=== PATIENT | female | born 1970 | race Caucasian/White ===

== ENCOUNTER 2017-08-26 19:08 | Observation (INO) | payer BC ==
[2017-08-26] MEDS ORDERED: ASPIRIN 81 MG CHEWABLE TABLET ONE (19:52)
[2017-08-26] MEDS ORDERED: ONDANSETRON 4 MG/2 ML VIAL ONE (19:53)
[2017-08-26] MEDS ORDERED: FENTANYL CITR 100 MCG/2 ML ONE (19:53)
[2017-08-26] MEDS ORDERED: NA CHLORIDE 0.9% 1,000 ML ONE (20:05)
[2017-08-26 20:08] LABS: Absolute Lymphocytes (CBC) 3.4 K/uL (0.7-4.9); Absolute Monocytes 0.7 K/uL (0.1-1.3); Absolute Neutrophil 3.2 K/uL (1.8-8.0); Basophils % 1.1 % (0-1.3); Eosinophils % 4.5 % (0-4.4); Lymphocytes % 43.6 % (15.3-44.8); MCH 32.2 pg (27.0-35.0); MCV 94.1 fL (80-100); MPV 8.3 fL (7.6-11.3); RBC Red Blood Cell Count 4.36 M/uL (3.86-4.86)
[2017-08-26 20:14] LABS: Protime INR 0.9
[2017-08-26 20:23] LABS: Bicarbonate 29 mEq/L (21-31); Glucose Level 89 mg/dL (65-120); Lipase 31 U/L (22-51); Potassium 3.9 mEq/L (3.6-5.0); Sodium Level 137 mEq/L (135-145)
[2017-08-26 20:30] LABS: ALT/SGPT 15 IU/L (10-60); AST/SGOT 21 IU/L (10-42); Albumin 4.1 g/dL (3.2-5.5); Alkaline Phosphatase 99 IU/L (42-121); BUN Blood Urea Nitrogen 14 mg/dL (6-20); Bilirubin Direct < 0.1 mg/dL (0-0.2); Bilirubin Total 0.5 mg/dL (0.3-1.2); Creatine Phosphokinase 64 IU/L (22-269); Magnesium 1.9 mg/dL (1.8-2.5); Protein, Total 6.8 g/dL (6.0-8.3)
[2017-08-26 20:31] LABS: CKMB Creatine Kinase MB 0.8 ng/ml (0.3-4.0)
--- NOTE | 2017-08-26 21:35 | RAD REPORT ---
EXAM DESCRIPTION: CT - Angio Aorta For Dissection - 08/26/2017 9:10 pm CLINICAL HISTORY: . Chest pain/abdominal pain COMPARISON: None TECHNIQUE: Computed tomography angiography of the chest, abdomen pelvis were obtained. 100 cc Isovue 370 was administered intravenously. Coronal and sagittal reconstruction were performed. All CT scans are performed using dose optimization technique as appropriate and may include automated exposure control or mA/KV adjustment according to patient size. FINDINGS: An aortic dissection is not seen. An aortic aneurysm is not displayed. Mild soft tissue w ithin the anterior mediastinum may represent thymic tissue. The celiac, SMA and ELAINE are patent . A lung consolidation is not present. A pericardial effusion is not seen. A pleural effusion is not n oted. Mild centrilobular emphysema is present The liver,spleen, pancreas and adrenals demonstrate no significant abnormality. The left kidney is absent. A small right renal cyst is present. Two right renal arteries are present. Minimal right hydronephrosis is present. The proximal right ureter is minimally dilated. The remaind er of right ureter is not clearly seen. There is no evidence of diverticulitis. The stomach is mildly distended. The wall of the proximal duo denum appears thickened. A moderate amount of stool is present within the colon. An area of narrowing involves the sigmoid col on IMPRESSION: Negative for an aortic dissection. Minimal right hydronephrosis of uncertain etiology Mild gastric distention. The wall of the proximal duodenum appears thickened perhaps secondary to inf lammation Area of narrowing involving the sigmoid colon may be related to spasm or a mass. Followup is recommen ded
--- NOTE | 2017-08-26 21:37 | RAD REPORT ---
EXAM DESCRIPTION: Abel Single View08/26/2017 8:00 pm CLINICAL HISTORY: Chest pain COMPARISON: July 2017 FINDINGS: The lungs are mildly hyperaerated. The lungs appear clear of acute infiltrate. The heart i s normal size IMPRESSION: No acute abnormalities displayed
--- NOTE | 2017-08-26 21:59 | ER ---
Nurse's Notes [facility] Name: Talita Alex Age: 46 yrs Sex: Female : 1970 Arrival Date: 08/26/2017 Time: 19:11 Bed 25 Private MD: Diagnosis: Chest pain, unspecified Presentation: 08/26 19:15 Presenting complaint: Patient states: pain in her L shoulder and [place] [id number] aa1 this am and began to have a sore throat and lump in her neck this afternoon. Transition of care: patient was not received from another setting of care. Onset of symptoms was August 26, 2017. Care prior to arrival: None. 19:15 Method Of Arrival: Ambulatory aa1 19:15 Acuity: BALJINDER 3 aa1 Triage Assessment: 19:18 General: Appears in no apparent distress. comfortable, Behavior is calm, cooperative, aa1 appropriate for age. 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 LMP N/A - Hysterectomy aa1 Historical: - Allergies: 19:18 No Known Allergies; aa1 - Home Meds: 19:18 Pravachol 40 mg Oral tab 1 tab once daily [Active]; diazepam 10 mg Oral tab 1 tab 3 aa1 times per day [Active]; Richardson 10-325 mg Oral tab 1 tab every 6 hours [Active]; Vitamin D Oral 50,000 unit weekly [Active]; carisoprodol 350 mg Oral tab [Active]; Buspirone Oral [Active]; Zofran (as hydrochloride) 4 mg Oral tab [Active]; Symbicort inhalation inhalation 2 times per day [Active]; albuterol sulfate inhalation Inhl [Active]; - PMHx: 19:18 Arthritis; COPD; Fibromyalgia; aa1 - PSHx: 19:18 cervical fusion; aa1 19:23 Hysterectomy; aa1 - Immunization history:: Flu vaccine is up to date. - Social history:: Smoking status: Patient uses tobacco products, smokes one-half pack cigarettes per day. - Family history:: not pertinent. Screenin:38 Abuse screen: Denies threats or abuse. Denies injuries from another. Nutritional ao screening: No deficits noted. Tuberculosis screening: No symptoms or risk factors identified. Fall Risk None identified. Assessment: 19:35 General: Appears in no apparent distress. comfortable, Behavior is calm, cooperative, ao appropriate for age. Pain: Complains of pain in chest Pain radiates to neck Pain currently is 10 out of 10 on a pain scale. Quality of pain is described as Pain began This morning. Neuro: Level of Consciousness is awake, alert, obeys commands, Oriented to person, place, time, situation, Appropriate for age Moves all extremities. Speech is normal. Cardiovascular: Capillary refill < 3 seconds Patient's skin is warm and dry. Respiratory: Airway is patent Respiratory effort is even, unlabored, Respiratory pattern is regular, symmetrical, Breath sounds are clear bilaterally. Breath sounds with crackles in left posterior lower lobe. GI: Abdomen is non-distended. : No signs and/or symptoms were reported regarding the genitourinary system. EENT: No signs and/or symptoms were reported regarding the EENT system. 20:09 Reassessment: Patient BP low after given Fentanil, DR Castellanos notified who ordered ao liter of NS bolus. Patient has been also put in Trendelenburg position. 20:32 Reassessment: Patient appears in no apparent distress at this time. Patient and/or ao family updated on plan of care and expected duration. Pain level reassessed. Patient is alert, oriented x 3, equal unlabored respirations, skin warm/dry/pink. Monitoring BP. 21:36 Reassessment: Patient appears in no apparent distress at this time. Patient and/or ao family updated on plan of care and expected duration. Pain level reassessed. Patient is alert, oriented x 3, equal unlabored respirations, skin warm/dry/pink. Waiting on patient to urinate. 22:57 Reassessment: Patient appears in no apparent distress at this time. Patient and/or ao family updated on plan of care and expected duration. Pain level reassessed. Patient is alert, oriented x 3, equal unlabored respirations, skin warm/dry/pink. Waiting on room assignment. 23:39 Reassessment: Patient left by Wheelchair with JADA Alarcon. Report called by house ao supervisor of guidance and testing. Patient Stable under no aperient stress at this moment. Vital Signs: 19:18 BP 102 / 63; Pulse 78; Resp 16; Temp 98.9(O); Pulse Ox 96% on R/A; Weight 51.71 kg; aa1 Height 5 ft. 5 in. (165.10 cm); Pain 7/10; 20:00 BP 89 / 60 RA Supine (auto/reg); Pulse 71; Resp 16; cc 20:04 BP 77 / 52 LA Supine (auto/reg); Pulse 78; Resp 16; cc 20:33 BP 84 / 48; Pulse 66; Resp 16; Pulse Ox 97% on R/A; ao 20:48 BP 99 / 68; Pulse 74; Resp 16; Pulse Ox 98% on R/A; ao 22:03 BP 90 / 61; Pulse 76; Resp 13; Pulse Ox 96% on R/A; ao 22:57 BP 99 / 66; Pulse 83; Resp 16; Pulse Ox 97% on R/A; ao 19:18 Body Mass Index 18.97 (51.71 kg, 165.10 cm) aa1 ED Course: 19:11 Patient arrived in ED. al2 19:15 Triage completed. aa1 19:20 Arm band placed on right wrist. aa1 19:24 Mj Irene RN is Primary Nurse. ao 19:29 Malik Castellanos MD is Attending Physician. timmy 19:38 Patient has correct armband on for positive identification. monitoring engineer on. Pulse ao ox on. NIBP on. 19:38 Patient maintains SpO2 saturation greater than 95% on room air. ao 19:50 Inserted saline lock: 20 gauge in left antecubital area, using aseptic technique. Blood ao collected. 19:57 Radiology exam delayed due to lab results not completed at this time. (BUN/Creatinine) vm2 test not completed at this time. 19:58 X-ray completed. Portable x-ray completed in exam room. Patient tolerated procedure kc2 well. 19:58 XRAY Chest (1 view) In Process Unspecified. EDMS 21:10 CT Aorta for Dissection In Process Unspecified. EDMS 21:12 CT completed. Patient moved to CT. Patient moved back from CT. nj 21:58 Keisha Winslow MD is Hospitalizing Provider. timmy 21:58 Urine collected: clean catch specimen, clear. cc 21:58 UDS Sent. cc 23:39 No provider procedures requiring assistance completed. Patient admitted, IV remains in ao place. Administered Medications: 09:57 Drug: Aspirin Chewable Tablet 162 mg Route: PO; ao 21:25 Follow up: Response: No adverse reaction ao 19:57 Drug: fentaNYL (PF) 25 mcg Route: IVP; Site: left antecubital; ao 21:25 Follow up: Response: No adverse reaction; No adverse reaction. BP drop ao 20:00 Drug: Zofran 4 mg Route: IVP; Site: left antecubital; ao 21:25 Follow up: Response: No adverse reaction ao 20:10 Drug: NS 0.9% 1000 ml Route: IV; Rate: 1 bolus; Site: left antecubital; ao 21:26 Follow up: IV Status: Completed infusion; IV Intake: 1000ml ao 22:17 Drug: ProTONIX 40 mg Route: IVP; Site: left antecubital; ao 23:38 Follow up: Response: No adverse reaction ao 23:38 Not Given (Patient Low BP): fentaNYL (PF) 25 mcg IVP once ao Intake: 21:26 IV: 1000ml; Total: 1000ml. ao Outcome: 21:58 Decision to Hospitalize by Provider. timmy 23:21 Admitted to Med/surg accompanied by tech, via stretcher, room 213, Report called to Lory Wilder RN 23:21 Condition: stable 23:21 Demonstrated understanding of admission 23:40 Patient left the ED. ao Signatures: Dispatcher [employer] EDMS Lorraine Quinteros, JADA RN aaMalik Granado MD MD cha Chretien, Felicia, RN RN Sarai Dunlap Alex, RN RN Radhika Tellez2 Herberth Hernandez Victoria vm2 Caroline Sarmiento2
--- NOTE | 2017-08-26 21:59 | EDPHYS ---
Physician Documentation [facility] Name: Talita Alex Age: 46 yrs Sex: Female : 1970 Arrival Date: 08/26/2017 Time: 19:11 Bed 25 Private MD: ED Physician Malik Castellanos HPI: 08/26 19:39 This 46 yrs old Female presents to ER via Ambulatory with complaints of Chest timmy Pain, Neck and Upper Back Pain. 19:39 The patient or guardian reports chest pain that is located primarily in the substernal timmy area. Onset: today. The pain radiates to the left arm. Associated signs and symptoms: Pertinent positives: cough, shortness of breath. The chest pain is described as. Modifying factors: The symptoms are alleviated by remaining still, the symptoms are aggravated by movement. 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 N/A - Hysterectomy aa1 Historical: - Allergies: 19:18 No Known Allergies; aa1 - Home Meds: 19:18 Pravachol 40 mg Oral tab 1 tab once daily [Active]; diazepam 10 mg Oral tab 1 tab 3 aa1 times per day [Active]; Holden 10-325 mg Oral tab 1 tab every 6 hours [Active]; Vitamin D Oral 50,000 unit weekly [Active]; carisoprodol 350 mg Oral tab [Active]; Buspirone Oral [Active]; Zofran (as hydrochloride) 4 mg Oral tab [Active]; Symbicort inhalation inhalation 2 times per day [Active]; albuterol sulfate inhalation Inhl [Active]; - PMHx: 19:18 Arthritis; COPD; Fibromyalgia; aa1 - PSHx: 19:18 cervical fusion; aa1 19:23 Hysterectomy; aa1 - Immunization history:: Flu vaccine is up to date. - Social history:: Smoking status: Patient uses tobacco products, smokes one-half pack cigarettes per day. - Family history:: not pertinent. ROS: 19:39 Constitutional: Negative for fever, chills, and weight loss, Eyes: Negative for injury, timmy pain, redness, and discharge, ENT: Negative for injury, pain, and discharge, Neck: Negative for injury, pain, and swelling, Respiratory: Negative for shortness of breath, cough, wheezing, and pleuritic chest pain, Abdomen/GI: Negative for abdominal pain, nausea, vomiting, diarrhea, and constipation, Back: Negative for injury and pain, : Negative for injury, bleeding, discharge, and swelling, MS/Extremity: Negative for injury and deformity, Skin: Negative for injury, rash, and discoloration, Neuro: Negative for headache, weakness, numbness, tingling, and seizure, Psych: Negative for depression, anxiety, suicide ideation, homicidal ideation, and hallucinations, Allergy/Immunology: Negative for hives, rash, and allergies, Endocrine: Negative for neck swelling, polydipsia, polyuria, polyphagia, and marked weight changes, Hematologic/Lymphatic: Negative for swollen nodes, abnormal bleeding, and unusual bruising. 19:39 Cardiovascular: Positive for chest pain, with movement, of the chest and left arm. Exam: 19:39 Constitutional: This is a well developed, well nourished patient who is awake, alert, timmy and in no acute distress. Head/Face: Normocephalic, atraumatic. Eyes: Pupils equal round and reactive to light, extra-ocular motions intact. Lids and lashes normal. Conjunctiva and sclera are non-icteric and not injected. Cornea within normal limits. Periorbital areas with no swelling, redness, or edema. ENT: Nares patent. No nasal discharge, no septal abnormalities noted. Tympanic membranes are normal and external auditory canals are clear. Oropharynx with no redness, swelling, or masses, exudates, or evidence of obstruction, uvula midline. Mucous membranes moist. Neck: Trachea midline, no thyromegaly or masses palpated, and no cervical lymphadenopathy. Supple, full range of motion without nuchal rigidity, or vertebral point tenderness. No Meningismus. Chest/axilla: Normal chest wall appearance and motion. Nontender with no deformity. No lesions are appreciated. Cardiovascular: Regular rate and rhythm with a normal S1 and S2. No gallops, murmurs, or rubs. Normal PMI, no JVD. No pulse deficits. Abdomen/GI: Soft, non-tender, with normal bowel sounds. No distension or tympany. No guarding or rebound. No evidence of tenderness throughout. Back: No spinal tenderness. No costovertebral tenderness. Full range of motion. Skin: Warm, dry with normal turgor. Normal color with no rashes, no lesions, and no evidence of cellulitis. MS/ Extremity: Pulses equal, no cyanosis. Neurovascular intact. Full, normal range of motion. Neuro: Awake and alert, GCS 15, oriented to person, place, time, and situation. Cranial nerves II-XII grossly intact. Motor strength 5/5 in all extremities. Sensory grossly intact. Cerebellar exam normal. Normal gait. Psych: Awake, alert, with orientation to person, place and time. Behavior, mood, and affect are within normal limits. 19:39 Respiratory: the patient does not display signs of respiratory distress, Respirations: normal, Breath sounds: rhonchi, that are mild, are scattered. Vital Signs: 19:18 BP 102 / 63; Pulse 78; Resp 16; Temp 98.9(O); Pulse Ox 96% on R/A; Weight 51.71 kg; aa1 Height 5 ft. 5 in. (165.10 cm); Pain 7/10; 20:00 BP 89 / 60 RA Supine (auto/reg); Pulse 71; Resp 16; cc 20:04 BP 77 / 52 LA Supine (auto/reg); Pulse 78; Resp 16; cc 20:33 BP 84 / 48; Pulse 66; Resp 16; Pulse Ox 97% on R/A; ao 20:48 BP 99 / 68; Pulse 74; Resp 16; Pulse Ox 98% on R/A; ao 22:03 BP 90 / 61; Pulse 76; Resp 13; Pulse Ox 96% on R/A; ao 22:57 BP 99 / 66; Pulse 83; Resp 16; Pulse Ox 97% on R/A; ao 19:18 Body Mass Index 18.97 (51.71 kg, 165.10 cm) aa1 MDM: 19:29 Patient medically screened. [facility] 19:42 Data reviewed: vital signs, nurses notes, lab test result(s), EKG, radiologic studies, timmy plain films. 08/26 19:39 Order name: Basic Metabolic Panel; Complete Time: 21:56 [facility] 08/26 19:39 Order name: BNP; Complete Time: 21:56 [facility] 08/26 19:39 Order name: CBC with Diff; Complete Time: 21:56 [facility] 08/26 19:39 Order name: Ckmb; Complete Time: 21:56 [facility] 08/26 19:39 Order name: CPK; Complete Time: 21:56 [facility] 08/26 19:39 Order name: LFT's; Complete Time: 21:56 [facility] 08/26 19:39 Order name: Magnesium; Complete Time: 21:56 [facility] 08/26 19:39 Order name: PT-INR; Complete Time: 21:56 [facility] 08/26 19:39 Order name: Ptt, Activated; Complete Time: 21:56 [facility] 08/26 19:39 Order name: Troponin (emerg Dept Use Only); Complete Time: 21:56 [facility] 08/26 19:39 Order name: Lipase; Complete Time: 21:56 [facility] 08/26 19:39 Order name: UDS [facility] 08/26 21:55 Order name: Urine Dipstick--Ancillary (enter results) 08/26 22:20 Order name: Lipid Profile [facility] 08/26 19:39 Order name: XRAY Chest (1 view); Complete Time: 21:56 [facility] 08/26 19:39 Order name: EKG; Complete Time: 19:39 [facility] 08/26 19:53 Order name: CT Aorta for Dissection; Complete Time: 21:56 [facility] 08/26 22:02 Order name: CONS Physician Consult [facility] 08/26 22:20 Order name: Echo with Doppler [facility] 08/26 22:20 Order name: Heart Healthy [facility] 08/26 22:20 Order name: Lipid Profile [facility] 08/26 22:20 Order name: Troponin I [facility] 08/26 22:20 Order name: Troponin I [facility] 08/26 22:20 Order name: Troponin I [facility] 08/26 19:39 Order name: Cardiac monitoring; Complete Time: 19:47 [facility] 08/26 19:39 Order name: EKG - Nurse/Tech; Complete Time: 19:47 [facility] 08/26 19:39 Order name: IV Saline Lock; Complete Time: 19:48 [facility] 08/26 19:39 Order name: Labs collected and sent; Complete Time: 19:48 [facility] 08/26 19:39 Order name: O2 Per Protocol; Complete Time: 19:48 [facility] 08/26 19:39 Order name: O2 Sat Monitoring; Complete Time: 19:48 [facility] 08/26 19:39 Order name: Urine Dipstick-Ancillary (obtain specimen); Complete Time: 21:54 [facility] 08/26 19:39 Order name: Bilateral blood pressure; Complete Time: 20:04 [facility] Administered Medications: 09:57 Drug: Aspirin Chewable Tablet 162 mg Route: PO; ao 21:25 Follow up: Response: No adverse reaction ao 19:57 Drug: fentaNYL (PF) 25 mcg Route: IVP; Site: left antecubital; ao 21:25 Follow up: Response: No adverse reaction; No adverse reaction. BP drop ao 20:00 Drug: Zofran 4 mg Route: IVP; Site: left antecubital; ao 21:25 Follow up: Response: No adverse reaction ao 20:10 Drug: NS 0.9% 1000 ml Route: IV; Rate: 1 bolus; Site: left antecubital; ao 21:26 Follow up: IV Status: Completed infusion; IV Intake: 1000ml ao 22:17 Drug: ProTONIX 40 mg Route: IVP; Site: left antecubital; ao 23:38 Follow up: Response: No adverse reaction ao 23:38 Not Given (Patient Low BP): fentaNYL (PF) 25 mcg IVP once ao Disposition: 08/26/17 21:58 Hospitalization ordered by Keisha Winslow for Observation. Preliminary diagnosis is Chest pain, unspecified. - Bed requested for Telemetry/MedSurg (observation). - Status is Observation. ao - Condition is Stable. - Problem is new. - Symptoms have improved. UTI on Admission? No Signatures: Dispatcher [employer] EDMS Vickie Greene RN RN mw Kern, Alissa, RN RN aa1 Malik Castellanos MD MD cha Ortiz, Alex RN RN ao
[2017-08-26 22:05] LABS: Urine Blood TRACE (NEG); Urine Glucose NEGATIVE (NEG); Urine Protein NEGATIVE (NEG)
[2017-08-26] MEDS ORDERED: PANTOPRAZOLE 40 MG INJ ONE (22:12)
[2017-08-26 22:16] LABS: Barbiturates NEGATIVE; Benzodiazepines POSITIVE; Cocaine NEGATIVE; METHAMPHETAM NEGATIVE; Opiates POSITIVE; Phencyclidine NEGATIVE; THC Cannibis POSITIVE
[2017-08-26] MEDS ORDERED: ACETAMINOPHEN 500 MG TAB PO PRN (22:17)
[2017-08-27] MEDS: MORPHINE 4 MG/ML SYR IV PRN ×2 (01:44→06:00)
[2017-08-27] MEDS ORDERED: LORazepam 2 MG/ML VIAL IV ONE (01:48)
[2017-08-27] MEDS ORDERED: ALPRAZOLAM 0.5 MG TABLET PO PRN (01:48)
--- NOTE | 2017-08-27 01:54 | P.HP ---
Certification for Inpatient Patient admitted to: Observation With expected LOS: <2 Midnights Patient will require the following post-hospital care: None Practitioner: I am a practitioner with admitting privileges, knowledge of patient current condition, hospital course, and medical plan of care. Services: Services provided to patient in accordance with Admission requirements found in Title 42 Section 412.3 of the Code of Federal Regulations Patient History Date of Service: 08/27/17 Reason for admission: Shortness of breath; COPD exacerbation; chest pain; anxiety disorder History of Present Illness: Patient is a 46-year-old female who comes into the emergency room with complaints of chest discomfort. She has been feeling short of breath and has noticed that she had a little lump in her throat. She sent a picture to her mother who apparently is a nurse. Patient started having anxiety in her chest started hurting. The pain went to her left shoulder. She has a wrap around her left arm. She got concerned and came into the emergency room for further evaluation. Patient normally has chest pain associated with her anxiety. We give her some anxiety medicine which has alleviated her chest discomfort. Patient clinically is feeling much better after the anxiolytics. Patient also had a CT of her chest in the lower part of her neck which did not reveal any significant abnormalities. On physical exam there is no abnormalities. Her oral pharyngeal looks normal and there is no noted supple lymphadenopathy. She did have an anterior cervical fusion performed/year. There is a scar but no other abnormalities noted. She should be stable for discharge home in the morning. Allergies No Known Allergies Allergy (Unverified 07/06/17 16:56) Home Medications: Budesonide/Formoterol Fumarate [Symbicort 160-4.5 Mcg Inhaler] 1 puff IH BID 05/04 Bupropion *Xl* [Wellbutrin XL*] 300 mg PO DAILY 08/27/17 Buspirone HCl [Buspar] 15 mg PO BID 08/27/17 Carisoprodol [Soma*] 350 mg PO BID PRN 08/27/17 Cholecalciferol (Vitamin D3) [Vitamin D 5,000 IU Cap*] 1 cap PO EVERY 7TH DAY Diazepam [Valium*] 10 mg PO TID 08/27/17 Hydrocodone 10/APAP 325 [[place] 10/325*] 1 tab PO Q6H PRN 08/27/17 Metoclopramide HCl [Reglan] 10 mg PO TID 08/27/17 Ondansetron HCl [Zofran] 4 mg PO Q6H PRN 08/27/17 Pravastatin Sodium [Pravachol] 40 mg PO DAILY 08/27/17 - Past Medical/Surgical History Has patient received pneumonia vaccine in the past: No Diabetic: No -: ARTHRITIS -: COPD -: FIBROMYALGIA -: DEGENERATIVE DISC DISEASE -: GASTROPARESIS -: IBS -: PTSD -: DEPRESSION W/ ANXIETY -: CHOSTOCONDRITIS -: HYSTERECTOMY -: TUBAL LIGATION -: KIDNEY REPAIR -: HYSTERECTOMY -: TONSILLECTOMY -: CERVICAL FUSION -: X2 - Family History Father Medical History: Diabetes Notes: CHF Mother Medical History: Heart disease Notes: CHF - Social History Smoking Status: Current every day smoker Alcohol use: Yes Caffeine use: Yes Place of Residence: Home Review of Systems 10-point ROS is otherwise unremarkable Physical Examination - Vital Signs Temperature: 97.8 F Blood Pressure: 103/61 Pulse: 66 Respirations: 18 Pulse Ox (%): 97 - Physical Exam General: Alert, In no apparent distress, Oriented x3 HEENT: Atraumatic, PERRLA, Mucous membr. moist/pink, EOMI, Sclerae nonicteric Neck: Supple, 2+ carotid pulse no bruit, No LAD, Without JVD or thyroid abnormality Respiratory: Clear to auscultation bilaterally, Normal air movement Cardiovascular: Regular rate/rhythm, Normal S1 S2, No murmurs Gastrointestinal: Normal bowel sounds, Soft and benign, Non-distended, No tenderness Musculoskeletal: No clubbing, No swelling, No tenderness Integumentary: No rashes Neurological: Normal gait, Normal speech, Normal strength at 5/5 x4 extr, Normal tone, Sensation intact, Cranial nerves 3-12 intact, Normal affect Lymphatics: No axilla or inguinal lymphadenopathy - Studies Laboratory Data (last 24 hrs) 08/26/17 19:45: PT 10.6, INR 0.90, APTT 28.5 08/26/17 19:45: WBC 7.7, Hgb 14.0, Hct 41.0, Plt Count 193 08/26/17 19:45: B-Natriuretic Peptide 30 08/26/17 19:45: Sodium 137, Potassium 3.9, BUN 14, Creatinine 0.82, Glucose 89, Magnesium 1.9, Total Bilirubin 0.5, AST 21, ALT 15, Alkaline Phosphatase 99, Lipase 31 Assessment & Plan - Problems (Diagnosis) (1) Chest pain, rule out acute myocardial infarction Current Visit: Yes Status: Acute (2) Shortness of breath Current Visit: Yes Status: Acute (3) Anxiety disorder Current Visit: Yes Status: Acute (4) Neck discomfort Current Visit: Yes Status: Acute (5) History of COPD Current Visit: Yes Status: Acute (6) History of fibromyalgia Current Visit: Yes Status: Acute - Plan Plan: 1. Serial troponins and EKG 2. Pulmonary consultation 3. Echocardiogram 4. CT aortic dissection did not reveal any significant abnormalities within the lungs in the lower part of the neck; there is no abnormalities noted on physical exam 5. IV morphine for pain 6. Continue with anxiolytic 7. GI and DVT prophylaxis Anticipate discharge home in the morning - Advance Directives Does patient have a Living Will: No Does patient have a Durable POA for Healthcare: No
--- NOTE | 2017-08-27 07:03 | EKG ---
Test Date: 2017-08-26 Test Time: 19:39:15 Certified Credit Counselor: BRIANNA MEASUREMENT RESULTS: Intervals: Rate: 72 OK: 172 QRSD: 94 QT: 406 QTc: 444 [place]: P: 65 OK: 172 QRS: 55 T: 61 INTERPRETIVE STATEMENTS: Normal sinus rhythm Normal ECG Compared to ECG 07/06/2017 14:58:07 Sinus bradycardia no longer present Electronically Signed On 08-27-17 07:02:36 CDT by Gregory Ambriz
[2017-08-27] MEDS ORDERED: ENOXAPARIN 40 MG/0.4 ML SQ SCH (09:00)
[2017-08-27] MEDS ORDERED: METOPROLOL TAR 50 MG TAB PO SCH (09:00)
[2017-08-27] MEDS ORDERED: ASPIRIN EC 81 MG TAB PO SCH (09:00)
--- NOTE | 2017-08-27 12:29 | ECHO ---
HEIGHT: 5 ft 7 in WEIGHT: 120 lb 9.6 oz DATE OF STUDY: 08/27/[address]: Keisha Winslow MD 2-DIMENSIONAL: YES M.MODE: YES DOPPLER: YES COLOR FLOW: YES TDS: PORTABLE: DEFINITY: BUBBLE STUDY: DIAGNOSIS: CORNARY ARTERY DISEASE CARDIAC HISTORY: CATHERIZATION: NO SURGERY: NO PROSTHETIC VALVE: NO PACEMAKER: NO MEASUREMENTS (cm) DIASTOLIC (NORMALS) SYSTOLIC (NORMALS) IVSd 0.6 (0.6-1.2) LA Diam 3.1 (1.9-4.0) LVEF 56% LVIDd 4.9 (3.5-5.7) LVIDs 3.4 (2.0-3.5) %FS 29% LVPWd 0.9 (0.6-1.2) Ao Diam 2.7 (2.0-3.7) 2 DIMENSIONAL ASSESSMENT: RIGHT ATRIUM: NORMAL LEFT ATRIUM: NORMAL RIGHT VENTRICLE: NORMAL LEFT VENTRICLE: NORMAL TRICUSPID VALVE: NORMAL MITRAL VALVE: NORMAL PULMONIC VALVE: NORMAL AORTIC VALVE: NORMAL PERICARDIAL EFFUSION: NONE AORTIC ROOT: NORMAL LEFT VENTRICULAR WALL MOTION: NORMAL DOPPLER/COLOR FLOW: TRACE TRICUSPID REGURGITAITON. NORMAL RIGHT VENTRICULAR SYSTOLIC PRESSURE. COMMENTS: NORMAL 2-DIMENSIONAL ECHOCARDIOGRAM. TRACE TRICUSPID REGURGITATION. TECHNOLOGIST: ELLI MIDDLETON
--- NOTE | 2017-08-27 12:32 | P.CNS ---
Date of Consult: 08/27/17 Reason for Consult: COPD Chief Complaint: Shortness of breath; COPD exacerbation; chest pain; anxiety disorder History of Present Illness: Patient is 46 years of age with a history of COPD patient admitted to the hospital complaining of left-sided chest discomfort radiating to the neck and the left arm does have a history of anxiety and was admitted to the hospital is scheduled to see me for a followup patient had a stress test done and was recently seen by Cardiology patient is compliant with the bronchodilators patient's chemistries are unremarkable Allergies No Known Allergies Allergy (Unverified 07/06/17 16:56) Home Medications: Alprazolam [Xanax*] 0.5 mg PO TID PRN #30 tab 08/27/17 Budesonide/Formoterol Fumarate [Symbicort 160-4.5 Mcg Inhaler] 1 puff IH BID 05/04 Bupropion *Xl* [Wellbutrin XL*] 300 mg PO DAILY 08/27/17 Buspirone HCl [Buspar] 15 mg PO BID 08/27/17 Carisoprodol [Soma*] 350 mg PO BID PRN 08/27/17 Cholecalciferol (Vitamin D3) [Vitamin D 5,000 IU Cap*] 1 cap PO EVERY 7TH DAY Hydrocodone 10/APAP 325 [[place] 10/325*] 1 tab PO Q6H PRN 08/27/17 Metoclopramide HCl [Reglan] 10 mg PO TID 08/27/17 Metoprolol Tartrate [Lopressor*] 25 mg PO BID #30 tab 08/27/17 Ondansetron HCl [Zofran] 4 mg PO Q6H PRN 08/27/17 Pravastatin Sodium [Pravachol] 40 mg PO DAILY 08/27/17 - Past Medical/Surgical History Diabetic: No -: ARTHRITIS -: COPD -: FIBROMYALGIA -: DEGENERATIVE DISC DISEASE -: GASTROPARESIS -: IBS -: PTSD -: DEPRESSION W/ ANXIETY -: CHOSTOCONDRITIS -: HYSTERECTOMY -: TUBAL LIGATION -: KIDNEY REPAIR -: HYSTERECTOMY -: TONSILLECTOMY -: CERVICAL FUSION -: X2 - Family History Father Medical History: Diabetes Notes: CHF Mother Medical History: Heart disease Notes: CHF - Social History Smoking Status: Current every day smoker Alcohol use: Yes Caffeine use: Yes Place of Residence: Home Review of Systems 10-point ROS is otherwise unremarkable Physical Examination Temp Pulse Resp BP Pulse Ox 97.3 F 60 18 90/57 L 99 08/27/17 04:00 08/27/17 04:00 08/27/17 04:00 08/27/17 09:00 08/27/17 04:00 General: Alert, Oriented x3 HEENT: Atraumatic Neck: Supple Respiratory: Clear to auscultation bilaterally Cardiovascular: No edema, Normal S1 S2 Laboratory Data (last 24 hrs) 08/26/17 19:45: PT 10.6, INR 0.90, APTT 28.5 08/26/17 19:45: WBC 7.7, Hgb 14.0, Hct 41.0, Plt Count 193 08/26/17 19:45: B-Natriuretic Peptide 30 08/26/17 19:45: Sodium 137, Potassium 3.9, BUN 14, Creatinine 0.82, Glucose 89, Magnesium 1.9, Total Bilirubin 0.5, AST 21, ALT 15, Alkaline Phosphatase 99, Lipase 31 - Problems (1) Atypical chest pain Status: Acute Plan: Patient is 46 years of age with a history of COPD I suspect she has an atypical chest pain urine screen is positive for opiates benzodiazepines and marijuana she does take benzodiazepines and opioids at home chemistries unremarkable troponin negative chest x-ray is clear of COPD changes vital signs stable patient has a normal EKG can be discharged home on her current inhalers
--- NOTE | 2017-08-27 16:51 | P.DS ---
Discharge Date: 08/27/17 Disposition: ROUTINE DISCHARGE Discharge Condition: GOOD Reason for Admission: Shortness of breath; COPD exacerbation; chest pain; anxiety disorder - Problems (1) Chest pain, rule out acute myocardial infarction Onset Date: 08/27/17 Status: Acute (2) Shortness of breath Onset Date: 08/27/17 Status: Acute (3) Anxiety disorder Onset Date: 08/27/17 Status: Acute (4) Neck discomfort Onset Date: 08/27/17 Status: Acute (5) History of COPD Onset Date: 08/27/17 Status: Acute (6) History of fibromyalgia Onset Date: 08/27/17 Status: Acute Brief History of Present Illness: Patient is a 46-year-old female who comes into the emergency room with complaints of chest discomfort. She has been feeling short of breath and has noticed that she had a little lump in her throat. She sent a picture to her mother who apparently is a nurse. Patient started having anxiety in her chest started hurting. The pain went to her left shoulder. She has a wrap around her left arm. She got concerned and came into the emergency room for further evaluation. Patient normally has chest pain associated with her anxiety. We give her some anxiety medicine which has alleviated her chest discomfort. Patient clinically is feeling much better after the anxiolytics. Patient also had a CT of her chest in the lower part of her neck which did not reveal any significant abnormalities. On physical exam there is no abnormalities. Her oral pharyngeal looks normal and there is no noted supple lymphadenopathy. She did have an anterior cervical fusion performed/year. There is a scar but no other abnormalities noted. She should be stable for discharge home in the morning. Hospital Course: Patient has done well during hospital stay. She was seen by Pulmonary and advised to follow-up as an outpt. 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 Patient is stable for discharge home with outpt follow- up. Vital Signs/Physical Exam: Temp Pulse Resp BP Pulse Ox 97.3 F 60 18 90/57 L 99 08/27/17 04:00 08/27/17 04:00 08/27/17 04:00 08/27/17 09:00 08/27/17 04:00 General: Alert, In no apparent distress, Oriented x3 Laboratory Data at Discharge: WBC 7.7 K/uL (4.3-10.9) 08/26/17 19:45 Hgb 14.0 g/dL (12.0-15.0) 08/26/17 19:45 Hct 41.0 % (36.0-45.0) 08/26/17 19:45 Plt Count 193 K/uL (152-406) 08/26/17 19:45 PT 10.6 SECONDS (9.5-12.5) 08/26/17 19:45 INR 0.90 08/26/17 19:45 APTT 28.5 SECONDS (24.3-36.9) 08/26/17 19:45 Sodium 137 mEq/L (135-145) 08/26/17 19:45 Potassium 3.9 mEq/L (3.6-5.0) 08/26/17 19:45 BUN 14 mg/dL (6-20) 08/26/17 19:45 Creatinine 0.82 mg/dL (0.44-1.00) 08/26/17 19:45 Glucose 89 mg/dL (65-120) 08/26/17 19:45 Magnesium 1.9 mg/dL (1.8-2.5) 08/26/17 19:45 Total Bilirubin 0.5 mg/dL (0.3-1.2) 08/26/17 19:45 AST 21 IU/L (10-42) 08/26/17 19:45 ALT 15 IU/L (10-60) 08/26/17 19:45 Alkaline Phosphatase 99 IU/L (42-121) 08/26/17 19:45 Troponin I < 0.03 ng/mL (<0.03) 08/27/17 03:22 B-Natriuretic Peptide 30 pg/ml (<=100) 08/26/17 19:45 Triglycerides 63 mg/dL (35-160) 08/27/17 03:22 Cholesterol 187 mg/dL (<200) 08/27/17 03:22 HDL Cholesterol 42 mg/dL (29-89) 08/27/17 03:22 Cholesterol/HDL Ratio 4.45 08/27/17 03:22 Lipase 31 U/L (22-51) 08/26/17 19:45 Home Medications: Budesonide/Formoterol Fumarate [Symbicort 160-4.5 Mcg Inhaler] 1 puff IH BID 05/04 Bupropion *Xl* [Wellbutrin XL*] 300 mg PO DAILY 08/27/17 Buspirone HCl [Buspar] 15 mg PO BID 08/27/17 Carisoprodol [Soma*] 350 mg PO BID PRN 08/27/17 Cholecalciferol (Vitamin D3) [Vitamin D 5,000 IU Cap*] 1 cap PO EVERY 7TH DAY Hydrocodone 10/APAP 325 [[place] 10/325*] 1 tab PO Q6H PRN 08/27/17 Metoclopramide HCl [Reglan] 10 mg PO TID 08/27/17 Ondansetron HCl [Zofran] 4 mg PO Q6H PRN 08/27/17 Pravastatin Sodium [Pravachol] 40 mg PO DAILY 08/27/17 Patient Discharge Instructions: OK TO DC IV AND DC HOME AFTER PULMONARY EVALUATION. FOLLOW-UP WITH PRIMARY CARE PROVIDER IN 1-2 WEEKS. FOLLOW-UP WITH PULMONARY IN 1-2 WEEKS. RETURN TO THE ER IF symptoms worsen. CALL or TEXT DR. BORGES AT [phone] IF ANY QUESTIONS REGARDING HOSPITAL STAY. PLEASE CALL THE FLOOR AT [phone] IF ANY MEDICATION OR NURSING QUESTIONS. Diet: Regular Activity: Fall precautions Followup: Sergey Smith MD [ACTIVE - CAN ADMIT] - 1-2 Weeks (Follow up in office in 1 -2 weeks. Call to schedule an appointment. ) Time spent managing pt's care (in minutes): 20
--- NOTE | 2017-08-29 12:26 | CON ---
Date of Consultation: 08/27/[address] by Dr. Adam on 08/26/2017. I saw the patient on 08/27/2017 Reason For Consult: Chest pain. History Of Present Illness: Ms. Alex is a patient who is 46. Has a past medical history of anxi ety and panic disorder as well as dyslipidemia and hypertension. Came in which with what she describ es herself as a panic attack, left shoulder pain, hyperventilation, and diaphoresis without any nause a or vomiting. Had some palpitations, but denies any PND, orthopnea, pedal edema, or syncope. Her s ymptoms went away promptly after receiving Ativan. She is convinced that was a panic attack. Past Medical History: As stated earlier. Allergies: NONE. Review of Systems: Negative. Social History: Negative. Medications: Include metoprolol, Xanax, and Pravachol. Physical Examination: General: She was anxious. Vital Signs: Stable. She was afebrile. HEENT: Negative. Neck: Supple without any bruit, lymphadenopathy, JVD, or thyromegaly. Chest: Clear to auscultation and percussion. Cardiac: Revealed a regular rhythm and rate without any murmurs, gallops, or rubs. Abdomen: Benign. Extremities: Revealed no clubbing, cyanosis, or edema. Diagnostic Data: All normal. EKG was negative. Labs were negative. Chest x-ray was negative. CTA was negative. Echocardiogram, which was pending at the time I saw her was also reportedly negative as well. Impression And Plan: 1.Atypical chest pain, most likely secondary to anxiety and panic attack. 2.Hypertension. 3.Dyslipidemia. 4.History of chronic obstructive pulmonary disease. 5.History of fibromyalgia. 6.History of degenerative joint disease. 7.Ms. Alex certainly can go home whenever it is okay with Dr. Winslow. She wants to go home. She certainly is a good candidate for an outpatient stress test considering her history of hypertension a s well as family history of heart disease and dyslipidemia. Her mother is a patient of mine as well. CORIE/[place]LAND[place] Voice ID: [id number] Report ID: [id number]
== END 2017-08-27 10:25 | disposition home or self-care (01) ==
LOC: ER 19:08 → ERHOLD 21:59 → 2ND 23:30
PROVIDERS: ADMIT Hospitalist; ATTEND Hospitalist
DX: R07.9 Chest pain, unspecified (principal); F41.9 Anxiety disorder, unspecified; M25.512 Pain in left shoulder; J44.9 Chronic obstructive pulmonary disease, unspecified; M54.2 Cervicalgia; R06.02 Shortness of breath; F17.210 Nicotine dependence, cigarettes, uncomplicated
CPT/HCPCS: 36415; 71045; 71275; 74175; 80048; 80061; 80076; 80307; 81003; 82550; 82553; 83690; 83735; 83880; 84484; 85025; 85610; 85730; 93005; 93306; 96361; 96374; 96375; 99285; C9113; G0378; J2405; J3010; J7030; Q9967

== ENCOUNTER 2018-02-24 08:02 | Emergency (ER) | payer BC ==
[2018-02-24] MEDS ORDERED: IPRATROPIUM BROM 0.5MG/2.5ML ONE (08:36)
[2018-02-24] MEDS ORDERED: ALBUTEROL 2.5 MG/3 ML NEB SOL ONE (08:36)
[2018-02-24 08:58] LABS: Absolute Lymphocytes (CBC) 1.8 K/uL (0.7-4.9); Absolute Monocytes 0.7 K/uL (0.1-1.3); Basophils % 0.9 % (0-1.3); Eosinophils % 2.5 % (0-4.4); Hematocrit 41.5 % (36.0-45.0); Lymphocytes % 18.4 % (15.3-44.8); MCH 33.8 pg (27.0-35.0); MCV 97.8 fL (80-100); Monocytes % 7.2 % (3.3-12.3); RBC Red Blood Cell Count 4.24 M/uL (3.86-4.86)
[2018-02-24 09:10] LABS: Protime INR 0.89
[2018-02-24 09:21] LABS: ALT/SGPT 28 U/L (12-78); AST/SGOT 30 U/L (15-37); Albumin 3.8 g/dL (3.4-5.0); Alkaline Phosphatase 112 U/L (45-117); BUN Blood Urea Nitrogen 9 mg/dL (7-18); Bicarbonate 25 mmol/L (21-32); Bilirubin Direct 0.1 mg/dL (0-0.2); Bilirubin Total 0.5 mg/dL (0.2-1.0); Glucose Level 106 mg/dL (74-106); Potassium 4.6 mmol/L (3.5-5.1); Protein, Total 6.9 g/dL (6.4-8.2); Sodium Level 136 mmol/L (136-145)
[2018-02-24] MEDS ORDERED: LORAZEPAM 1 MG TABLET ONE ×3 (10:17→13:01)
--- NOTE | 2018-02-24 11:02 | ER ---
Nurse's Notes [facility] Name: Talita Alex Age: 47 yrs Sex: Female : 1970 Arrival Date: 02/24/2018 Time: 08:03 Bed 5 Private MD: Andreas Sanders Diagnosis: Suicidal ideations Presentation: 02/24 08:11 Presenting complaint: Patient states: Pt reports she attempted to harm herself by ss cutting her legs and arms with a knife and pair of scissors. Multiple superficial abrasions are observed to bilateral upper and lower extremities. Pt reports that she has an extensive psych history and that she has had thought of suicide in the past, and what triggered her this time is that her boyfriend is a "d*ck!". Transition of care: patient was not received from another setting of care. Onset of symptoms is unknown. Risk Assessment: Do you want to hurt yourself or someone else? Patient reports no desire to harm self or others. Initial Sepsis Screen: Does the patient meet any 2 criteria? No. Patient's initial sepsis screen is negative. Does the patient have a suspected source of infection? No. Patient's initial sepsis screen is negative. Note Pt reports she sees psychiatrist, Dr. Loja. Care prior to arrival: None. 08:11 Method Of Arrival: Ambulatory ss 08:11 Acuity: BALJINDER 2 ss FIELD OBSERVER: 08:19 LMP N/A - Hysterectomy ss Historical: - Allergies: 08:19 No Known Allergies; ss - PMHx: 08:19 Arthritis; COPD; Fibromyalgia; PTSD; Anxiety; Depression; ss - PSHx: 08:19 Hysterectomy; cervical fusion; Cholecystectomy; ureter repair; C section; ss - Immunization history:: Adult Immunizations up to date. - Social history:: Smoking status: . - Ebola Screening: : Patient denies exposure to infectious person Patient denies travel to an Ebola-affected area in the 21 days before illness onset. Screenin:36 Abuse screen: Denies threats or abuse. Denies injuries from another. Nutritional sg screening: No deficits noted. Tuberculosis screening: No symptoms or risk factors identified. Never had TB. Assessment: 08:30 General: Appears in no apparent distress. comfortable, unkempt, well developed, well sg nourished, Behavior is calm, cooperative, appropriate for age, Smells of tobacco smoke. Pain: Complains of pain in abdomen and pelvis Quality of pain is described as aching, sharp. Neuro: Level of Consciousness is awake, alert, obeys commands, Oriented to person, place, time, situation, Tanning Solution Maker are equal bilaterally Moves all extremities. Speech is normal, Facial symmetry appears normal. Cardiovascular: Patient's skin is warm and dry. Chest pain is denied. Respiratory: Reports cough that is non-productive, persistent Airway is patent Respiratory effort is even, unlabored, Respiratory pattern is regular, symmetrical. GI: Abdomen is flat, non-distended, Reports lower abdominal pain, pelvic pain. : Reports pain in suprapubic area Denies discharge, urinary frequency, vaginal bleeding, vaginal itching. EENT: No signs and/or symptoms were reported regarding the EENT system. Derm: Skin is pink, warm \\T\\ dry. Musculoskeletal: Circulation, motion, and sensation intact. Range of motion: intact in all extremities, Swelling absent. 08:36 Reassessment: pt requesting to have her ordered breathing treatment later today, as she sg does not want it at this time. pt educated on benefits of treatment, pt stated understanding but continues to refuse. will continue to monitor. 09:20 Reassessment: a code purple has been called per hospital policy, pt appears upset and sg uncooperative at this time, pt encouraged to remain calm and please remain in the room, pt throws car keys at hospital staff. notified, no new orders received at this time. 09:51 Reassessment: belongings and car keys have been handed over to pt mother, mother sg instructed to please not enter the department with the belongings due to pt safety, pt mother stated understanding. 10:09 Reassessment: pt c/o CP at this time, reports has a hx of anxiety with anxiety attacks sg but denies taking any medications at home for reported condition, also reports having stopped taking " psych meds" yesterday. notified of pt c/o CP and anxiety, orders received and pt medicated see EMAR. 10:19 Reassessment: pt reports that her boyfriend is in the lobby and if she doesn't get to sg see him. 11:40 Reassessment: Patient appears in no apparent distress at this time. [facility] notified pt does have a EAD and Mental Health Warrant, Shayla from [facility] requesting a copy of the Transfer Mental Health Warrant be faxed to their facility for a signature and the patient can come. Charge Nurse notified, Mental Health [place] Officer Eric Notified of request, notified. 12:50 Reassessment: a code purple is called. sg 12:55 Reassessment: Patient appears in no apparent distress at this time. pt family member at sg bedside at this time, awaiting the signed Mental Health tx document from the appropriate painting technician, awaiting transport will continue to monitor. Psych: 08:20 Subjective: Patient's mood is sad, angry, irritable, Delusions are denied, sg Hallucinations are denied Having thoughts of suicide. Denies suicidal plan. Objective: Patient is challenging, defensive, irritable, Speech is normal, Affect is appropriate, Patient has mutilated themselves by cutting into legs and arms with knife and scissors, causing superficial abrasions noted to arms and legs. Interventions: Removed personal items and placed in bag. Patient placed in hospital gown. Belonging list filled out. Suicide Risk Assessment: Sad Person Scale: Sex of patient: Female: Score 0 points. Age of patient: Score 0 point if patient falls outside of specified age parameters. Depression: Score 1 point if signs of depression are present. Previous Attempt: Score 1 point if patient has previously attempted suicide. Substance Abuse: Score 0 point if patient does not abuse alcohol or drugs. Social Support: Score 1 point if social support is lacking and/or unavailable. Organized Plan: Score 0 if patient did not have an organized plan in place. Relationship: Score 0 point if patient has a spouse or domestic partner. TOTAL POINTS: If total points are 3-4, proposed clinical action is close follow-up/consider hospitalization. Safety Checks: Personal items have been removed. Door is open. No visitors are present at this time. a sitter has been assigned for 1:1 care, for basic needs. 08:30 Patient uses of beer, of liquor, weekly. Patient does not have a history of DTs. Vital Signs: 08:19 BP 108 / 78; Pulse 113; Resp 19; Temp 97.7(TE); Pulse Ox 98% on R/A; Weight 68.04 kg; ss Height 5 ft. 7 in. (170.18 cm); Pain 8/10; 10:33 BP 103 / 73; Pulse 91; Resp 17; Pulse Ox 98% on R/A; Pain 8/10; sg 08:19 Body Mass Index 23.49 (68.04 kg, 170.18 cm) ED Course: 08:03 Patient arrived in ED. as 08:04 Andreas Sanders DO is Private Physician. as 08:07 Desmond Schulte MD is Attending Physician. gs 08:14 Triage completed. ss 08:19 Arm band placed on right wrist. ss 08:26 Valuables inventory done. Locked in safe. See valuables checklist. 2 socks that are sg black and pink in color, black leather like material combat style boots, Elias pants with pizza print, elias long sleeve shirt, sent to the vault with security. pt requesting to keep cellular phone with her at this time. 08:34 Initial lab(s) drawn, by me, sent to lab. Inserted saline lock: 20 gauge in right dh3 forearm, using aseptic technique. Blood collected. 08:36 Doc Tong, RN is Primary Nurse. sg 08:44 EKG done, by technical communicator. reviewed by Desmond Schulte MD. at1 09:48 Patient offered bedside toilet and refused at this time.. pt 10:26 No provider procedures requiring assistance completed. sg 10:32 sent chart to [facility], [facility], [facility], and [facility]. 13:20 IV discontinued, intact, bleeding controlled, No redness/swelling at site. Pressure sg dressing applied. Administered Medications: 10:12 Drug: Ativan 1 mg Route: PO; ss 12:50 Follow up: Response: No adverse reaction; No change in condition; notified sg 11:31 Drug: Ativan 1 mg Route: PO; sg 12:45 Follow up: Response: No adverse reaction; No change in condition; notified sg 12:02 Not Given (Patient Refused): Albuterol 2.5 mg Inhalation once sg 12:02 Not Given (Patient Refused): AtroVENT Aerosol 0.5 mg Inhalation once sg 12:56 Drug: Ativan 1 mg Route: PO; dm5 13:10 Follow up: Response: No adverse reaction sg 13:27 Not Given (Patient Refused): Tetanus-Diphtheria Toxoid Adult 0.5 ml IM once sg Intake: Outcome: 10:25 Transferred Note: report given to Adela RN with [facility]. Awaiting Doc to sg Doc report and transfer to receiving facility at this time 10:33 Transferred Note: report given to Ibeth ELISA with [facility], Awaiting Doc to sg Doc report and transfer to receiving facility at this time 11:02 ER care complete, transfer ordered by . gs 13:20 Condition: good sg 13:20 Instructed on the need for transfer, benefits of quitting smoking, safety practices, Demonstrated understanding of instructions. 13:29 Patient left the ED. sg Signatures: Allyson Mendez Deana, RN RN dm5 Doc Tong RN RN Mery Bojorquez, JADA RN Tayla Sterling Shelby, RN RN Catia Griffin, emergency department technician EKG Tat1 Talita Vyas 3 Desmond Schulte MD MD
--- NOTE | 2018-02-24 11:02 | EDPHYS ---
Physician Documentation [facility] Name: Talita Alex Age: 47 yrs Sex: Female : 1970 Arrival Date: 02/24/2018 Time: 08:03 Bed 5 Private MD: Andreas Sanders ED Physician Desmond Schulte HPI: 02/24 11:03 This 47 yrs old Female presents to ER via Ambulatory with complaints of gs Suicidal Ideation. 11:03 Onset: The symptoms/episode began/occurred suddenly, just prior to arrival. Past gs psychiatric history: Prior diagnosis: depression. Associated signs and symptoms: Pertinent positives; suicide ideation. Severity of symptoms: At their worst the symptoms were severe in the emergency department the symptoms are unchanged. The patient has experienced similar episodes in the past, a few times. The patient has not recently seen a physician. 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 - Social history:: Smoking status: . - Ebola Screening: : Patient denies exposure to infectious person Patient denies travel to an Ebola-affected area in the 21 days before illness onset. ROS: 11:03 All other systems are negative. gs Exam: 11:03 Head/Face: Normocephalic, atraumatic. Eyes: Pupils equal round and reactive to light, gs extra-ocular motions intact. Lids and lashes normal. Conjunctiva and sclera are non-icteric and not injected. Cornea within normal limits. Periorbital areas with no swelling, redness, or edema. ENT: Nares patent. No nasal discharge, no septal abnormalities noted. Tympanic membranes are normal and external auditory canals are clear. Oropharynx with no redness, swelling, or masses, exudates, or evidence of obstruction, uvula midline. Mucous membranes moist. Neck: Trachea midline, no thyromegaly or masses palpated, and no cervical lymphadenopathy. Supple, full range of motion without nuchal rigidity, or vertebral point tenderness. No Meningismus. Chest/axilla: Normal chest wall appearance and motion. Nontender with no deformity. No lesions are appreciated. Cardiovascular: Regular rate and rhythm with a normal S1 and S2. No gallops, murmurs, or rubs. Normal PMI, no JVD. No pulse deficits. Abdomen/GI: Soft, non-tender, with normal bowel sounds. No distension or tympany. No guarding or rebound. No evidence of tenderness throughout. Back: No spinal tenderness. No costovertebral tenderness. Full range of motion. Skin: Warm, dry with normal turgor. Normal color with no rashes, no lesions, and no evidence of cellulitis. MS/ Extremity: Pulses equal, no cyanosis. Neurovascular intact. Full, normal range of motion. Neuro: Awake and alert, GCS 15, oriented to person, place, time, and situation. Cranial nerves II-XII grossly intact. Motor strength 5/5 in all extremities. Sensory grossly intact. Cerebellar exam normal. Normal gait. 11:03 Constitutional: The patient appears alert, awake. 11:03 Respiratory: the patient does not display signs of respiratory distress, Respirations: normal, Breath sounds: rhonchi, that are mild, are heard diffusely. 11:03 Skin: injury, laceration(s), multiple superficial hash mcdermott arms and legs do not break gs dermis. Vital Signs: 08:19 BP 108 / 78; Pulse 113; Resp 19; Temp 97.7(TE); Pulse Ox 98% on R/A; Weight 68.04 kg; ss Height 5 ft. 7 in. (170.18 cm); Pain 8/10; 10:33 BP 103 / 73; Pulse 91; Resp 17; Pulse Ox 98% on R/A; Pain 8/10; sg 08:19 Body Mass Index 23.49 (68.04 kg, 170.18 cm) ss MDM: 08:21 Patient medically screened. gs 11:03 Differential diagnosis: acute psychotic break, depression, si,depression. Data gs reviewed: vital signs, nurses notes. Response to treatment: the patient's symptoms have mildly improved after treatment. 02/24 08:22 Order name: Acetaminophen; Complete Time: 10:36 gs 02/24 08:22 Order name: Basic Metabolic Panel; Complete Time: 10:36 gs 02/24 08:22 Order name: CBC with Diff; Complete Time: 10:36 gs 02/24 08:22 Order name: ETOH Level; Complete Time: 10:36 02/24 08:22 Order name: Hepatic Function; Complete Time: 10:36 02/24 08:22 Order name: PT-INR; Complete Time: 10:36 02/24 08:22 Order name: Urine Drug Screen 02/24 12:27 Order name: Urine Dipstick--Ancillary (enter results) 02/24 08:22 Order name: EKG; Complete Time: 08:23 02/24 08:22 Order name: EKG - Nurse/Tech; Complete Time: 09:44 02/24 08:22 Order name: IV Saline Lock; Complete Time: 08:38 02/24 08:22 Order name: Labs collected and sent; Complete Time: 08:38 02/24 08:22 Order name: Urine Dipstick-Ancillary (obtain specimen); Complete Time: 13:28 gs Administered Medications: 10:12 Drug: Ativan 1 mg Route: PO; 12:50 Follow up: Response: No adverse reaction; No change in condition; notified sg 11:31 Drug: Ativan 1 mg Route: PO; sg 12:45 Follow up: Response: No adverse reaction; No change in condition; notified sg 12:02 Not Given (Patient Refused): Albuterol 2.5 mg Inhalation once sg 12:02 Not Given (Patient Refused): AtroVENT Aerosol 0.5 mg Inhalation once sg 12:56 Drug: Ativan 1 mg Route: PO; dm5 13:10 Follow up: Response: No adverse reaction sg 13:27 Not Given (Patient Refused): Tetanus-Diphtheria Toxoid Adult 0.5 ml IM once sg Disposition: 02/24/18 11:02 Transfer ordered to Psych Facility. Diagnosis is Suicidal ideations. - Reason for transfer: Higher level of care. - Accepting physician is [facility]. - Condition is Stable. - Problem is new. - Symptoms are unchanged. Signatures: Dispatcher [employer] Gladys Bhatt RN RN [id number] Doc Tong RN RN sg Smirch, Shelby, RN RN ss Starr, Gregory, MD MD Corrections: (The following items were deleted from the chart) 13:29 11:02 02/24/2018 11:02 Transfer ordered to Psych Facility. Diagnosis is Suicidal sg ideations. Reason for transfer: Higher level of care. [facility] Condition is Stable. Problem is new. Symptoms are unchanged. gs
--- NOTE | 2018-02-24 12:25 | EKG ---
Test Date: 2018-02-24 Test Time: 08:41:23 Sommelier: STEPHANIE MEASUREMENT RESULTS: Intervals: Rate: 98 WA: 162 QRSD: 82 QT: 362 QTc: 462 [place]: P: 76 WA: 162 QRS: 68 T: 53 INTERPRETIVE STATEMENTS: Sinus rhythm with sinus arrhythmia Otherwise normal ECG Compared to ECG 08/26/2017 19:39:15 no significant change from previous ECG Electronically Signed On 02-24-18 12:24:45 CDT by Gregory Ambriz
[2018-02-24 12:36] LABS: Urine Blood TRACE (NEG); Urine Glucose NEGATIVE (NEG); Urine Protein NEGATIVE (NEG); Urine Specific Gravity 1.015 (1.005-1.030)
[2018-02-24 12:47] LABS: Barbiturates NEGATIVE (NEGATIVE); Benzodiazepines POSITIVE (NEGATIVE); Cocaine NEGATIVE (NEGATIVE); METHAMPHETAM NEGATIVE (NEGATIVE); Methadone NEGATIVE (NEGATIVE); Opiates NEGATIVE (NEGATIVE); Phencyclidine NEGATIVE (NEGATIVE); THC Cannibis POSITIVE (NEGATIVE)
== END 2018-02-24 13:29 ==
LOC: ER 08:02
DX: R45.851 Suicidal ideations (principal); F32.9 Major depressive disorder, single episode, unspecified; F43.10 Post-traumatic stress disorder, unspecified
CPT/HCPCS: 36415; 80048; 80076; 80307; 80320; 80329; 81003; 85025; 85610; 93005; 99285